=== PATIENT | female | born 1960 | race Caucasian/White ===

== ENCOUNTER → 2017-03-07 | Outpatient (REF) | payer MEDICARE, MEDICAID ==
[2017-03-07 17:52] LABS: ALBUMIN 4.3 GM/DL (3.2-5.2); ALBUMIN/GLOBULIN RATIO 1.23 (1.00-1.93); ALKALINE PHOSPHATASE 66 U/L (45-117); ALT/SGPT 44 U/L (12-78); ANION GAP 8 MEQ/L (8-16); AST/SGOT 27 U/L (15-37); BILIRUBIN,TOTAL 0.3 MG/DL (0.2-1.0); BLOOD UREA NITROGEN 16 MG/DL (7-18); CALCIUM LEVEL 9.5 MG/DL (8.5-10.1); CARBON DIOXIDE LEVEL 28 MEQ/L (21-32); CHLORIDE LEVEL 101 MEQ/L (98-107); CHOLESTEROL LEVEL 194 MG/DL (<200); CREATININE FOR GFR 0.69 MG/DL (0.55-1.02); GLOMERULAR FILTRATION RATE > 60.0 (>51); GLUCOSE, FASTING 101 MG/DL (70-105); POTASSIUM SERUM 4.4 MEQ/L (3.5-5.1); SODIUM LEVEL 137 MEQ/L (136-145); TOTAL PROTEIN 7.8 GM/DL (6.4-8.2); TRIGLYCERIDES LEVEL 329 MG/DL (<150)
[2017-03-12 00:07] LABS: %CD3+CD4+CD8+ 1.5 % (Not Estab.); %CD3+CD4-CD8+ 18.1 % (Not Estab.); %CD3+CD4-CD8- 0.8 % (Not Estab.); ABS CD3+CD4+CD8+ 44 /uL (Not Estab.); ABS CD3+CD4+CD8- 1914 /uL (Not Estab.); ABS CD3+CD4-CD8+ 525 /uL (Not Estab.); ABS CD3+CD4-CD8- 23 /uL (Not Estab.); CD4/CD8 NYSDOH RATIO 3.65 (Not Estab.); Eosinophils 1 % (.); HCT 43.3 % (34.0-46.6); Lyme Disease IgG/IgM Antibodie <0.91 ISR (0.00-0.90); Lyme Disease IgM Ab Quantitati <0.80 index (0.00-0.79); Monocytes 4 % (.); Neutrophils 42 % (.); WBC 5.6 x10E3/uL (3.4-10.8)
== END ==
LOC: M SFHCPLAZ 13:08
PROVIDERS: ATTEND Internal Medicine Infectious Disease
DX: B20 Human immunodeficiency virus [HIV] disease (principal); I10 Essential (primary) hypertension; M25.562 Pain in left knee; E78.2 Mixed hyperlipidemia
CPT/HCPCS: 36415; 80053; 80061; 81001; 84443; 85652; 86038; 86140; 86360; 86431; 86480; 86617; 86780; 87491; 87536; 87591; 90471; 90733; G0463

== ENCOUNTER → 2018-03-06 | Outpatient (REF) | payer MEDICARE, MEDICAID ==
[2018-03-06 15:59] LABS: ALBUMIN 4.1 GM/DL (3.2-5.2); ALBUMIN/GLOBULIN RATIO 1.08 (1.00-1.93); ALKALINE PHOSPHATASE 83 U/L (45-117); ALT/SGPT 43 U/L (12-78); ANION GAP 8 MEQ/L (8-16); AST/SGOT 33 U/L (7-37); BILIRUBIN,TOTAL 0.3 MG/DL (0.2-1.0); BLOOD UREA NITROGEN 14 MG/DL (7-18); CALCIUM LEVEL 9.1 MG/DL (8.5-10.1); CARBON DIOXIDE LEVEL 23 MEQ/L (21-32); CHLORIDE LEVEL 111 MEQ/L (98-107); CHOLESTEROL LEVEL 189 MG/DL (<200); CHOLESTEROL RISK RATIO 5.108 (<5); CREATININE FOR GFR 0.61 MG/DL (0.55-1.30); GLOMERULAR FILTRATION RATE > 60.0 (>51); GLUCOSE, FASTING 98 MG/DL (70-100); HDL CHOLESTEROL 37 MG/DL (>40); NON-HDL-C 152 MG/DL; POTASSIUM SERUM 4.5 MEQ/L (3.5-5.1); SODIUM LEVEL 142 MEQ/L (136-145); TOTAL PROTEIN 7.9 GM/DL (6.4-8.2); TRIGLYCERIDES LEVEL 275 MG/DL (<150)
[2018-03-06 16:00] LABS: ESTIMATED AVERAGE GLUCOSE 114 MG/DL (60-110); HEMOGLOBIN A1c 5.6 %
[2018-03-06 19:10] LABS: APPEARANCE, URINE CLEAR (CLEAR); BACTERIA, URINE AUTO 1+ (NEGATIVE); BILIRUBIN, URINE AUTO NEGATIVE (NEGATIVE); BLOOD, URINE BLOOD NEGATIVE (NEGATIVE); COLOR, URINE YELLOW (YELLOW); GLUCOSE, URINE (UA) AUTO NEGATIVE (NEGATIVE); KETONE, URINE AUTO NEGATIVE (NEGATIVE); LEUKOCYTE ESTERASE, URINE AUTO NEGATIVE (NEGATIVE); MUCUS, URINE SMALL (NEGATIVE); NITRITE, URINE AUTO NEGATIVE (NEGATIVE); PROTEIN, URINE AUTO NEGATIVE (NEGATIVE); RBC, URINE AUTO 0 /HPF (0-3); SPECIFIC GRAVITY URINE AUTO 1.016 (1.002-1.035); SQUAMOUS EPITHELIAL CELL UR AU 0 /HPF (0-6); UROBILINOGEN, URINE AUTO 0.2 mg/dL (0.0-2.0); WBC, URINE AUTO 1 /HPF (0-3)
[2018-03-08 15:11] LABS: % CD8 Pos Lymph 20.2 % (12.0-35.5); %CD4 Pos Lymphs 66.7 % (30.8-58.5); ABS Eosinophils 0.1 x10E3/uL (0.0-0.4); ABS Lymphs 3.3 x10E3/uL (0.7-3.1); ABS Monocytes 0.2 x10E3/uL (0.1-0.9); ABS Neutophils 2.2 x10E3/uL (1.4-7.0); Abs CD4 Helper 2201 /uL (359-1519); Abs CD8 Suppres 667 /uL (109-897); Eosinophils 2 % (Not Estab.); HCT 45.9 % (34.0-46.6); HGB 15.3 g/dL (11.1-15.9); Immature Grans 0 % (Not Estab.); Lymphocytes 56 % (Not Estab.); MCH 32.8 pg (26.6-33.0); MCHC 33.3 g/dL (31.5-35.7); MCV 99 fL (79-97); Monocytes 4 % (Not Estab.); Neutrophils 37 % (Not Estab.); Platelets 249 x10E3/uL (150-379); QUANTIFERON GOLD TB Negative (Negative); RBC 4.66 x10E6/uL (3.77-5.28); RDW 13.8 % (12.3-15.4); TB Test (QFT) Antigen 0.23 IU/mL (.); TB Test (QFT) Antigen Minus Ni 0.17 IU/mL (.); TB Test (QFT) Mitogen >10.00 IU/mL (.); TB Test (QFT) Nil 0.06 IU/mL (.)
[2018-03-11 14:13] LABS: HIV-1 RNA PCR QUANT 2 LC550285 <20 copies/mL (.)
== END ==
LOC: M SFHCPLAZ 12:19
DX: B20 Human immunodeficiency virus [HIV] disease (principal); E78.2 Mixed hyperlipidemia; Z79.899 Other long term (current) drug therapy
CPT/HCPCS: 80053

== ENCOUNTER → 2018-07-02 | Outpatient (REF) | payer MEDICARE, MEDICAID ==
[2018-07-04 14:49] LABS: HPV HYBRID CAPTURE II Negative (Negative)
== END ==
LOC: M SFHCWAGY 13:24
DX: Z12.4 Encounter for screening for malignant neoplasm of cervix (principal); Z85.41 Personal history of malignant neoplasm of cervix uteri
CPT/HCPCS: G0123

== ENCOUNTER → 2018-07-02 | Outpatient (CLI) | payer MEDICARE, MEDICAID | LOC: M WHC 13:29 | DX: Z12.31 Encounter for screening mammogram for malignant neoplasm of breast (principal); Z78.0 Asymptomatic menopausal state; Z12.4 Encounter for screening for malignant neoplasm of cervix; Z92.0 Personal history of contraception; Z92.29 Personal history of other drug therapy; Z85.41 Personal history of malignant neoplasm of cervix uteri | CPT/HCPCS: 77067; G0123 ==

== ENCOUNTER → 2018-10-13 | Outpatient (REF) | payer MEDICARE, MEDICAID ==
[2018-10-13 16:10] LABS: ALBUMIN 3.9 GM/DL (3.2-5.2); ALBUMIN/GLOBULIN RATIO 1.08 (1.00-1.93); ALKALINE PHOSPHATASE 76 U/L (45-117); ALT/SGPT 34 U/L (12-78); ANION GAP 8 MEQ/L (8-16); AST/SGOT 16 U/L (7-37); BILIRUBIN,TOTAL 0.3 MG/DL (0.2-1.0); BLOOD UREA NITROGEN 17 MG/DL (7-18); CALCIUM LEVEL 8.9 MG/DL (8.5-10.1); CARBON DIOXIDE LEVEL 26 MEQ/L (21-32); CHLORIDE LEVEL 105 MEQ/L (98-107); CHOLESTEROL LEVEL 200 MG/DL (<200); CHOLESTEROL RISK RATIO 5.555 (<5); CREATININE FOR GFR 0.64 MG/DL (0.55-1.30); GLOMERULAR FILTRATION RATE > 60.0 (>51); GLUCOSE, FASTING 121 MG/DL (70-100); HDL CHOLESTEROL 36 MG/DL (>40); LDL CHOLESTEROL 108 MG/DL (<100); NON-HDL-C 164 MG/DL; POTASSIUM SERUM 3.9 MEQ/L (3.5-5.1); SODIUM LEVEL 139 MEQ/L (136-145); TOTAL PROTEIN 7.5 GM/DL (6.4-8.2); TRIGLYCERIDES LEVEL 279 MG/DL (<150)
[2018-10-20 14:09] LABS: % CD8 Pos Lymph 19.5 % (12.0-35.5); %CD4 Pos Lymphs 66.9 % (30.8-58.5); ABS Eosinophils 0.1 x10E3/uL (0.0-0.4); ABS Lymphs 4.2 x10E3/uL (0.7-3.1); ABS Monocytes 0.2 x10E3/uL (0.1-0.9); ABS Neutophils 2.6 x10E3/uL (1.4-7.0); Abs CD4 Helper 2810 /uL (359-1519); Abs CD8 Suppres 819 /uL (109-897); CD4/CD8 Ratio 3.43 (0.92-3.72); Eosinophils 1 % (Not Estab.); HCT 43.7 % (34.0-46.6); HGB 14.7 g/dL (11.1-15.9); HIV-1 RNA PCR QUANT 2 LC550285 <20 copies/mL (.); Immature Grans 0 % (Not Estab.); Lymphocytes 60 % (Not Estab.); MCH 32.7 pg (26.6-33.0); MCHC 33.6 g/dL (31.5-35.7); MCV 97 fL (79-97); Monocytes 3 % (Not Estab.); Neutrophils 36 % (Not Estab.); Platelets 283 x10E3/uL (150-379); RBC 4.49 x10E6/uL (3.77-5.28); RDW 13.9 % (12.3-15.4); WBC 7.1 x10E3/uL (3.4-10.8)
== END ==
LOC: M SFHCPLAZ 13:33
DX: B20 Human immunodeficiency virus [HIV] disease (principal); E78.2 Mixed hyperlipidemia; Z23 Encounter for immunization
CPT/HCPCS: 80053

== ENCOUNTER → 2019-04-27 | Outpatient (REF) | payer MEDICARE, MEDICAID ==
[2019-04-27 13:55] LABS: ALBUMIN 4.3 GM/DL (3.2-5.2); ALT/SGPT 51 U/L (12-78); BILIRUBIN,TOTAL 0.5 MG/DL (0.2-1.0); BLOOD UREA NITROGEN 19 MG/DL (7-18); CALCIUM LEVEL 10.3 MG/DL (8.5-10.1); CARBON DIOXIDE LEVEL 30 MEQ/L (21-32); CHLORIDE LEVEL 101 MEQ/L (98-107); CHOLESTEROL LEVEL 179 MG/DL (<200); CHOLESTEROL RISK RATIO 4.589 (<5); CREATININE FOR GFR 0.73 MG/DL (0.55-1.30); GLOMERULAR FILTRATION RATE > 60.0 (>51); GLUCOSE, FASTING 100 MG/DL (70-100); HDL CHOLESTEROL 39 MG/DL (>40); LDL CHOLESTEROL 92 MG/DL (<100); NON-HDL-C 140 MG/DL; POTASSIUM SERUM 4.1 MEQ/L (3.5-5.1); SODIUM LEVEL 139 MEQ/L (136-145); TOTAL PROTEIN 7.7 GM/DL (6.4-8.2); TRIGLYCERIDES LEVEL 242 MG/DL (<150)
[2019-04-30 00:09] LABS: % CD8 Pos Lymph 18.8 % (12.0-35.5); %CD4 Pos Lymphs 69.1 % (30.8-58.5); ABS Eosinophils 0.1 x10E3/uL (0.0-0.4); ABS Lymphs 4.2 x10E3/uL (0.7-3.1); ABS Monocytes 0.4 x10E3/uL (0.1-0.9); ABS Neutophils 2.7 x10E3/uL (1.4-7.0); Abs CD4 Helper 2902 /uL (359-1519); Abs CD8 Suppres 790 /uL (109-897); CD4/CD8 Ratio 3.68 (0.92-3.72); Eosinophils 2 % (Not Estab.); HIV-1 RNA PCR QUANT 2 LC550285 <20 copies/mL (.); Immature Grans 0 % (Not Estab.); Lymphocytes 56 % (Not Estab.); MCH 33.2 pg (26.6-33.0); MCHC 34.1 g/dL (31.5-35.7); MCV 97 fL (79-97); Monocytes 6 % (Not Estab.); Neutrophils 36 % (Not Estab.); Platelets 281 x10E3/uL (150-450); RBC 4.52 x10E6/uL (3.77-5.28); RDW 14.3 % (12.3-15.4); WBC 7.5 x10E3/uL (3.4-10.8)
== END ==
LOC: M SFHCPLAZ 11:39
PROVIDERS: ATTEND Internal Medicine Infectious Disease
DX: B20 Human immunodeficiency virus [HIV] disease (principal); E78.2 Mixed hyperlipidemia
CPT/HCPCS: 36415; 80053; 80061; 86360; 87536; G0463

== ENCOUNTER → 2019-10-08 | Outpatient (REF) | payer MEDICARE, MEDICAID ==
[2019-10-08 18:09] LABS: ALT/SGPT 53 U/L (12-78); BILIRUBIN,TOTAL 0.4 MG/DL (0.2-1.0); BLOOD UREA NITROGEN 18 MG/DL (7-18); CALCIUM LEVEL 10.4 MG/DL (8.5-10.1); CARBON DIOXIDE LEVEL 29 MEQ/L (21-32); CHLORIDE LEVEL 100 MEQ/L (98-107); CHOLESTEROL LEVEL 205 MG/DL (<200); CHOLESTEROL RISK RATIO 6.029 (<5); CREATININE FOR GFR 0.72 MG/DL (0.55-1.30); GLOMERULAR FILTRATION RATE > 60.0 (>51); GLUCOSE, FASTING 118 MG/DL (70-100); HDL CHOLESTEROL 34 MG/DL (>40); NON-HDL-C 171 MG/DL; POTASSIUM SERUM 3.9 MEQ/L (3.5-5.1); SODIUM LEVEL 137 MEQ/L (136-145); TOTAL PROTEIN 7.6 GM/DL (6.4-8.2); TRIGLYCERIDES LEVEL 673 MG/DL (<150)
[2019-10-08 18:19] LABS: TOTAL 25(OH) VITAMIN D 24.9 NG/ML (30.0-100.0)
[2019-10-13 00:07] LABS: % CD8 Pos Lymph 21.2 % (12.0-35.5); %CD4 Pos Lymphs 65.2 % (30.8-58.5); ABS Eosinophils 0.1 x10E3/uL (0.0-0.4); ABS Lymphs 4.1 x10E3/uL (0.7-3.1); ABS Monocytes 0.3 x10E3/uL (0.1-0.9); ABS Neutophils 3.2 x10E3/uL (1.4-7.0); Abs CD4 Helper 2673 /uL (359-1519); Abs CD8 Suppres 869 /uL (109-897); CD4/CD8 Ratio 3.08 (0.92-3.72); Eosinophils 1 % (Not Estab.); HCT 45.2 % (34.0-46.6); HGB 15.5 g/dL (11.1-15.9); HIV-1 RNA PCR QUANT 2 LC550285 <20 copies/mL (.); Immature Grans 0 % (Not Estab.); Lymphocytes 52 % (Not Estab.); MCH 33.6 pg (26.6-33.0); MCHC 34.3 g/dL (31.5-35.7); MCV 98 fL (79-97); Monocytes 4 % (Not Estab.); Neutrophils 42 % (Not Estab.); Platelets 292 x10E3/uL (150-450); RBC 4.61 x10E6/uL (3.77-5.28); RDW 14.1 % (12.3-15.4); WBC 7.8 x10E3/uL (3.4-10.8)
== END ==
LOC: M SFHCPLAZ 12:56
PROVIDERS: ATTEND Internal Medicine Infectious Disease
DX: B20 Human immunodeficiency virus [HIV] disease (principal); E78.2 Mixed hyperlipidemia; Z23 Encounter for immunization
CPT/HCPCS: 36415; 80053; 80061; 82306; 86360; 87536; 90471; 90682; G0463

== ENCOUNTER → 2021-03-13 | Outpatient (REF) | payer MEDICARE, MEDICAID ==
[2021-03-13 17:57] LABS: ALBUMIN 4.2 GM/DL (3.2-5.2); ALT/SGPT 60 U/L (12-78); BILIRUBIN,TOTAL 0.3 MG/DL (0.2-1.0); BLOOD UREA NITROGEN 16 MG/DL (7-18); CARBON DIOXIDE LEVEL 28 MEQ/L (21-32); CHLORIDE LEVEL 102 MEQ/L (98-107); CHOLESTEROL LEVEL 161 MG/DL (<200); CHOLESTEROL RISK RATIO 4.878 (<5); CREATININE FOR GFR 0.72 MG/DL (0.55-1.30); GLOMERULAR FILTRATION RATE > 60.0 (>45); GLUCOSE, FASTING 104 MG/DL (70-100); HDL CHOLESTEROL 33 MG/DL (>40); LDL CHOLESTEROL 69 MG/DL (<100); NON-HDL-C 128 MG/DL; SODIUM LEVEL 137 MEQ/L (136-145); TOTAL 25(OH) VITAMIN D 34.3 NG/ML (30.0-100.0); TOTAL PROTEIN 7.8 GM/DL (6.4-8.2); TRIGLYCERIDES LEVEL 294 MG/DL (<150)
[2021-03-13 19:09] LABS: HEMOGLOBIN A1c 5.5 %
== END ==
LOC: M SFHCPLAZ 13:41
PROVIDERS: ATTEND Internal Medicine Infectious Disease
DX: B20 Human immunodeficiency virus [HIV] disease (principal); E78.2 Mixed hyperlipidemia; M85.88 Other specified disorders of bone density and structure, other site; R43.2 Parageusia; Z79.899 Other long term (current) drug therapy

== ENCOUNTER → 2021-09-11 | Outpatient (CLI) | payer MEDICARE, MEDICAID ==
[2021-09-11 18:40] LABS: ALBUMIN 4.3 GM/DL (3.2-5.2); ALT/SGPT 84 U/L (12-78); BILIRUBIN,TOTAL 0.3 MG/DL (0.2-1.0); BLOOD UREA NITROGEN 13 MG/DL (7-18); CALCIUM LEVEL 9.5 MG/DL (8.8-10.2); CARBON DIOXIDE LEVEL 31 MEQ/L (21-32); CHLORIDE LEVEL 103 MEQ/L (98-107); CHOLESTEROL LEVEL 244 MG/DL (<200); CHOLESTEROL RISK RATIO 6.777 (<5); CREATININE FOR GFR 0.72 MG/DL (0.55-1.30); GLOMERULAR FILTRATION RATE > 60.0 (>45); GLUCOSE, FASTING 85 MG/DL (70-100); HDL CHOLESTEROL 36 MG/DL (>40); NON-HDL-C 208 MG/DL; POTASSIUM SERUM 4.7 MEQ/L (3.5-5.1); SODIUM LEVEL 138 MEQ/L (136-145); TOTAL PROTEIN 8.1 GM/DL (6.4-8.2); TRIGLYCERIDES LEVEL 408 MG/DL (<150)
[2021-09-11 18:49] LABS: VITAMIN B12 LEVEL 811 PG/ML
[2021-09-11 18:50] LABS: FOLATE > 24.0 NG/ML
[2021-09-11 19:17] LABS: AMORPHOUS SEDIMENT SMALL (NEGATIVE); APPEARANCE, URINE CLOUDY (CLEAR); BACTERIA, URINE AUTO 1+ (NEGATIVE); BILIRUBIN, URINE AUTO NEGATIVE (NEGATIVE); BLOOD, URINE BLOOD NEGATIVE (NEGATIVE); COLOR, URINE YELLOW (YELLOW); GLUCOSE, URINE (UA) AUTO NEGATIVE (NEGATIVE); KETONE, URINE AUTO NEGATIVE (NEGATIVE); LEUKOCYTE ESTERASE, URINE AUTO NEGATIVE (NEGATIVE); NITRITE, URINE AUTO NEGATIVE (NEGATIVE); PROTEIN, URINE AUTO NEGATIVE (NEGATIVE); RBC, URINE AUTO 0 /HPF (0-3); SPECIFIC GRAVITY URINE AUTO 1.012 (1.002-1.035); SQUAMOUS EPITHELIAL CELL UR AU 2 /HPF (0-6); UROBILINOGEN, URINE AUTO 0.2 mg/dL (0.0-2.0); WBC, URINE AUTO 2 /HPF (0-3)
[2021-09-23 08:11] LABS: % CD8 Pos Lymph 20.4 % (12.0-35.5); %CD4 Pos Lymphs 66.1 % (30.8-58.5); ABS Basophils 0.1 x10E3/uL (0.0-0.2); ABS Lymphs 5.5 x10E3/uL (0.7-3.1); ABS Monocytes 0.2 x10E3/uL (0.1-0.9); ABS Neutophils 3.1 x10E3/uL (1.4-7.0); Abs CD4 Helper 3636 /uL (359-1519); Abs CD8 Suppres 1122 /uL (109-897); CD4/CD8 Ratio 3.24 (0.92-3.72); Eosinophils 0 % (Not Estab.); HCT 46.9 % (34.0-46.6); HGB 15.7 g/dL (11.1-15.9); HIV-1 RNA PCR QUANT 2 LC550285 <20 copies/mL (.); Lymphocytes 62 % (Not Estab.); MCH 33.2 pg (26.6-33.0); MCHC 33.5 g/dL (31.5-35.7); MCV 99 fL (79-97); Monocytes 2 % (Not Estab.); Neutrophils 35 % (Not Estab.); Platelets 337 x10E3/uL (150-450); RBC 4.73 x10E6/uL (3.77-5.28); RDW 12.1 % (11.7-15.4); VITAMIN B7 (BIOTIN) 0.37 ng/mL (0.05-0.83); WBC 8.9 x10E3/uL (3.4-10.8)
== END ==
LOC: M PLALAB 14:35
PROVIDERS: ATTEND Internal Medicine Infectious Disease
DX: B20 Human immunodeficiency virus [HIV] disease (principal); E78.2 Mixed hyperlipidemia; I10 Essential (primary) hypertension; Z23 Encounter for immunization
CPT/HCPCS: 36415; 80053; 80061; 81001; 82607; 82746; 84591; 86360; 87536; 90682; G0008; G0463

== ENCOUNTER → 2022-04-16 | Outpatient (CLI) | payer MEDICARE, MEDICAID ==
[2022-04-16 16:05] LABS: ALT/SGPT 58 U/L (12-78); BILIRUBIN,TOTAL 0.3 MG/DL (0.2-1.0); BLOOD UREA NITROGEN 14 MG/DL (7-18); CALCIUM LEVEL 9.3 MG/DL (8.8-10.2); CARBON DIOXIDE LEVEL 31 MEQ/L (21-32); CHLORIDE LEVEL 104 MEQ/L (98-107); CHOLESTEROL LEVEL 148 MG/DL (<200); CHOLESTEROL RISK RATIO 4.933 (<5); CREATININE FOR GFR 0.87 MG/DL (0.55-1.30); GLOMERULAR FILTRATION RATE > 60.0 (>45); GLUCOSE, FASTING 116 MG/DL (70-100); HDL CHOLESTEROL 30 MG/DL (>40); LDL CHOLESTEROL 50 MG/DL (<100); NON-HDL-C 118 MG/DL; POTASSIUM SERUM 4.2 MEQ/L (3.5-5.1); SODIUM LEVEL 140 MEQ/L (136-145); TOTAL PROTEIN 7.6 GM/DL (6.4-8.2); TRIGLYCERIDES LEVEL 338 MG/DL (<150)
[2022-04-20 07:08] LABS: % CD8 Pos Lymph 19.9 % (12.0-35.5); %CD4 Pos Lymphs 67.8 % (30.8-58.5); ABS Basophils 0.1 x10E3/uL (0.0-0.2); ABS Eosinophils 0.1 x10E3/uL (0.0-0.4); ABS Lymphs 4.9 x10E3/uL (0.7-3.1); ABS Monocytes 0.4 x10E3/uL (0.1-0.9); ABS Neutophils 3.4 x10E3/uL (1.4-7.0); Abs CD4 Helper 3322 /uL (359-1519); Abs CD8 Suppres 975 /uL (109-897); CD4/CD8 Ratio 3.41 (0.92-3.72); Eosinophils 1 % (Not Estab.); HCT 45.1 % (34.0-46.6); HGB 15.4 g/dL (11.1-15.9); HIV-1 RNA PCR QUANT 2 LC550285 <20 copies/mL (.); Immature Grans 0 % (Not Estab.); Lymphocytes 56 % (Not Estab.); MCHC 34.1 g/dL (31.5-35.7); MCV 97 fL (79-97); Monocytes 4 % (Not Estab.); Neutrophils 38 % (Not Estab.); Platelets 311 x10E3/uL (150-450); RBC 4.66 x10E6/uL (3.77-5.28); RDW 12.8 % (11.7-15.4); WBC 8.9 x10E3/uL (3.4-10.8)
== END ==
LOC: M PLALAB 14:07
PROVIDERS: ATTEND Internal Medicine Infectious Disease
DX: B20 Human immunodeficiency virus [HIV] disease (principal); E78.2 Mixed hyperlipidemia

== ENCOUNTER → 2022-10-29 | Outpatient (CLI) | payer MEDICARE, MEDICAID ==
[2022-10-29 17:01] LABS: ALBUMIN 4.2 G/DL (3.2-5.2); ALKALINE PHOSPHATASE 59 U/L (46-116); ALT/SGPT 39 U/L (7.0-40); AST/SGOT 29 U/L (<34); BILIRUBIN,TOTAL 0.4 MG/DL (0.3-1.2); BLOOD UREA NITROGEN 12 MG/DL (9-23); CALCIUM LEVEL 9.8 MG/DL (8.3-10.6); CARBON DIOXIDE LEVEL 28 MMOL/L (20-31); CHLORIDE LEVEL 101 MMOL/L (98-107); CHOLESTEROL LEVEL 136 MG/DL (<200); CREATININE FOR GFR 0.55 MG/DL (0.55-1.30); GLOMERULAR FILTRATION RATE > 60.0 (>45); GLUCOSE, FASTING 94 MG/DL (74-106); HDL CHOLESTEROL 36.7 MG/DL (>40); LDL CHOLESTEROL 36.9 MG/DL (<100); NON-HDL-C 99 MG/DL; POTASSIUM SERUM 4.5 MMOL/L (3.5-5.1); SODIUM LEVEL 140 MMOL/L (136-145); TOTAL PROTEIN 7.4 G/DL (5.7-8.2); TRIGLYCERIDES LEVEL 312 MG/DL (<150)
[2022-11-01 10:08] LABS: % CD8 Pos Lymph 20.9 % (12.0-35.5); %CD4 Pos Lymphs 66.1 % (30.8-58.5); ABS Basophils 0.1 x10E3/uL (0.0-0.2); ABS Eosinophils 0.1 x10E3/uL (0.0-0.4); ABS Lymphs 4.1 x10E3/uL (0.7-3.1); ABS Monocytes 0.4 x10E3/uL (0.1-0.9); ABS Neutophils 3.6 x10E3/uL (1.4-7.0); Abs CD4 Helper 2710 /uL (359-1519); Abs CD8 Suppres 857 /uL (109-897); CD4/CD8 Ratio 3.16 (0.92-3.72); Eosinophils 1 % (Not Estab.); HCT 45.4 % (34.0-46.6); HGB 15.4 g/dL (11.1-15.9); HIV-1 RNA PCR QUANT 2 LC550285 <20 copies/mL (.); Immature Grans 0 % (Not Estab.); Lymphocytes 49 % (Not Estab.); MCH 33.2 pg (26.6-33.0); MCHC 33.9 g/dL (31.5-35.7); MCV 98 fL (79-97); Monocytes 5 % (Not Estab.); Neutrophils 44 % (Not Estab.); Platelets 314 x10E3/uL (150-450); RBC 4.64 x10E6/uL (3.77-5.28); WBC 8.3 x10E3/uL (3.4-10.8)
== END ==
LOC: M PLALAB 12:19
PROVIDERS: ATTEND Internal Medicine Infectious Disease
DX: E78.2 Mixed hyperlipidemia (principal); B20 Human immunodeficiency virus [HIV] disease

== ENCOUNTER → 2023-05-21 | Outpatient (CLI) | payer OTHER ==
[2023-05-21 15:47] LABS: APPEARANCE, URINE HAZY (CLEAR); BACTERIA, URINE AUTO NEGATIVE (NEGATIVE); BILIRUBIN, URINE AUTO NEGATIVE (NEGATIVE); BLOOD, URINE BLOOD NEGATIVE (NEGATIVE); COLOR, URINE YELLOW (YELLOW); GLUCOSE, URINE (UA) AUTO NEGATIVE (NEGATIVE); KETONE, URINE AUTO NEGATIVE (NEGATIVE); LEUKOCYTE ESTERASE, URINE AUTO NEGATIVE (NEGATIVE); MUCUS, URINE SMALL (NEGATIVE); NITRITE, URINE AUTO NEGATIVE (NEGATIVE); PROTEIN, URINE AUTO NEGATIVE (NEGATIVE); RBC, URINE AUTO 0 /HPF (0-3); SQUAMOUS EPITHELIAL CELL UR AU 2 /HPF (0-6); UROBILINOGEN, URINE AUTO 0.2 mg/dL (0.0-2.0); WBC, URINE AUTO 0 /HPF (0-3)
[2023-05-21 16:06] LABS: ALBUMIN 4.3 G/DL (3.2-5.2); ALKALINE PHOSPHATASE 57 U/L (46-116); ALT/SGPT 36 U/L (7.0-40); AST/SGOT 16 U/L (<34); BILIRUBIN,TOTAL 0.5 MG/DL (0.3-1.2); BLOOD UREA NITROGEN 17 MG/DL (9-23); CALCIUM LEVEL 10.4 MG/DL (8.3-10.6); CARBON DIOXIDE LEVEL 28 MMOL/L (20-31); CHLORIDE LEVEL 104 MMOL/L (98-107); CHOLESTEROL LEVEL 125 MG/DL (<200); CHOLESTEROL RISK RATIO 3.84 (<5); CREATININE FOR GFR 0.52 MG/DL (0.55-1.30); GLOMERULAR FILTRATION RATE > 60.0 (>45); GLUCOSE, FASTING 117 MG/DL (74-106); HDL CHOLESTEROL 32.5 MG/DL (>40); LDL CHOLESTEROL 36.3 MG/DL (<100); NON-HDL-C 92.5 MG/DL; POTASSIUM SERUM 4.1 MMOL/L (3.5-5.1); SODIUM LEVEL 139 MMOL/L (136-145); TOTAL PROTEIN 7.5 G/DL (5.7-8.2); TRIGLYCERIDES LEVEL 281 MG/DL (<150)
[2023-05-24 10:08] LABS: % CD8 Pos Lymph 20.4 % (12.0-35.5); %CD4 Pos Lymphs 64.7 % (30.8-58.5); ABS Basophils 0.1 x10E3/uL (0.0-0.2); ABS Eosinophils 0.1 x10E3/uL (0.0-0.4); ABS Lymphs 3.5 x10E3/uL (0.7-3.1); ABS Monocytes 0.3 x10E3/uL (0.1-0.9); ABS Neutophils 2.8 x10E3/uL (1.4-7.0); Abs CD4 Helper 2265 /uL (359-1519); Abs CD8 Suppres 714 /uL (109-897); CD4/CD8 Ratio 3.17 (0.92-3.72); Eosinophils 1 % (Not Estab.); HCT 48.3 % (34.0-46.6); HGB 16.2 g/dL (11.1-15.9); HIV-1 RNA PCR QUANT 2 LC550285 <20 copies/mL (.); Immature Grans 0 % (Not Estab.); Lymphocytes 51 % (Not Estab.); MCH 32.9 pg (26.6-33.0); MCHC 33.5 g/dL (31.5-35.7); MCV 98 fL (79-97); Monocytes 5 % (Not Estab.); Neutrophils 42 % (Not Estab.); Platelets 269 x10E3/uL (150-450); RBC 4.93 x10E6/uL (3.77-5.28); WBC 6.7 x10E3/uL (3.4-10.8)
== END ==
LOC: M PLALAB 13:14
PROVIDERS: ATTEND Internal Medicine Infectious Disease
DX: B20 Human immunodeficiency virus [HIV] disease (principal); E78.2 Mixed hyperlipidemia; I10 Essential (primary) hypertension

== ENCOUNTER → 2023-11-27 | Outpatient (CLI) | payer OTHER, MEDICAID ==
[2023-11-27 16:31] LABS: ALBUMIN 4.1 G/DL (3.2-5.2); ALKALINE PHOSPHATASE 61 U/L (46-116); ALT/SGPT 40 U/L (7.0-40); AST/SGOT 21 U/L (<34); BILIRUBIN,TOTAL 0.4 MG/DL (0.3-1.2); BLOOD UREA NITROGEN 14 MG/DL (9-23); CALCIUM LEVEL 9.6 MG/DL (8.3-10.6); CARBON DIOXIDE LEVEL 32 MMOL/L (20-31); CHLORIDE LEVEL 103 MMOL/L (98-107); CREATININE FOR GFR 0.57 MG/DL (0.55-1.30); GLOMERULAR FILTRATION RATE > 60.0 (>45); GLUCOSE, FASTING 136 MG/DL (74-106); POTASSIUM SERUM 4.2 MMOL/L (3.5-5.1); SODIUM LEVEL 137 MMOL/L (136-145); TOTAL PROTEIN 7.3 G/DL (5.7-8.2)
[2023-11-27 16:35] LABS: HEMOGLOBIN A1c 5.6 % (4.0-6.0)
[2023-11-30 04:19] LABS: % CD8 Pos Lymph 21.6 % (12.0-35.5); %CD4 Pos Lymphs 66.3 % (30.8-58.5); ABS Basophils 0.1 x10E3/uL (0.0-0.2); ABS Eosinophils 0.1 x10E3/uL (0.0-0.4); ABS Monocytes 0.4 x10E3/uL (0.1-0.9); ABS Neutophils 3.5 x10E3/uL (1.4-7.0); Abs CD4 Helper 2652 /uL (359-1519); Abs CD8 Suppres 864 /uL (109-897); CD4/CD8 Ratio 3.07 (0.92-3.72); Eosinophils 2 % (Not Estab.); HCT 45.6 % (34.0-46.6); HIV-1 RNA PCR QUANT 2 LC550285 <20 copies/mL (.); Immature Grans 0 % (Not Estab.); Lymphocytes 49 % (Not Estab.); MCH 33.8 pg (26.6-33.0); MCHC 35.1 g/dL (31.5-35.7); MCV 96 fL (79-97); Monocytes 5 % (Not Estab.); Neutrophils 43 % (Not Estab.); Platelets 251 x10E3/uL (150-450); RBC 4.73 x10E6/uL (3.77-5.28); RDW 13.2 % (11.7-15.4); WBC 8.1 x10E3/uL (3.4-10.8)
== END ==
LOC: M PLALAB 14:20
PROVIDERS: ATTEND Internal Medicine Infectious Disease
DX: B20 Human immunodeficiency virus [HIV] disease (principal); E78.2 Mixed hyperlipidemia; Z79.899 Other long term (current) drug therapy

== ENCOUNTER → 2024-05-19 | Outpatient (REF) | payer OTHER, MEDICAID ==
[2024-05-19 19:13] LABS: APPEARANCE, URINE CLEAR (CLEAR); BACTERIA, URINE AUTO NEGATIVE (NEGATIVE); BILIRUBIN, URINE AUTO NEGATIVE (NEGATIVE); BLOOD, URINE BLOOD NEGATIVE (NEGATIVE); COLOR, URINE YELLOW (YELLOW); GLUCOSE, URINE (UA) AUTO NEGATIVE (NEGATIVE); KETONE, URINE AUTO NEGATIVE (NEGATIVE); LEUKOCYTE ESTERASE, URINE AUTO NEGATIVE (NEGATIVE); NITRITE, URINE AUTO NEGATIVE (NEGATIVE); PROTEIN, URINE AUTO NEGATIVE (NEGATIVE); RBC, URINE AUTO 0 /HPF (0-3); SPECIFIC GRAVITY URINE AUTO 1.013 (1.002-1.035); SQUAMOUS EPITHELIAL CELL UR AU 1 /HPF (0-6); UROBILINOGEN, URINE AUTO 0.2 mg/dL (0.0-2.0); WBC, URINE AUTO 0 /HPF (0-3)
[2024-05-19 19:47] LABS: ALBUMIN 4.1 G/DL (3.2-5.2); ALKALINE PHOSPHATASE 55 U/L (46-116); ALT/SGPT 43 U/L (7.0-40); AST/SGOT 20 U/L (<34); BILIRUBIN,TOTAL 0.5 MG/DL (0.3-1.2); BLOOD UREA NITROGEN 16 MG/DL (9-23); CALCIUM LEVEL 9.8 MG/DL (8.3-10.6); CARBON DIOXIDE LEVEL 29 MMOL/L (20-31); CHLORIDE LEVEL 105 MMOL/L (98-107); CHOLESTEROL LEVEL 153 MG/DL (<200); CHOLESTEROL RISK RATIO 4.11 (<5); CREATININE FOR GFR 0.61 MG/DL (0.55-1.30); GLOMERULAR FILTRATION RATE > 60.0 (>45); GLUCOSE, FASTING 101 MG/DL (74-106); HDL CHOLESTEROL 37.2 MG/DL (>40); NON-HDL-C 115.8 MG/DL; POTASSIUM SERUM 4.4 MMOL/L (3.5-5.1); SODIUM LEVEL 140 MMOL/L (136-145); TOTAL PROTEIN 7.4 G/DL (5.7-8.2); TRIGLYCERIDES LEVEL 349 MG/DL (<150)
== END ==
LOC: M PLALAB 16:54
PROVIDERS: ATTEND Internal Medicine Infectious Disease
DX: B20 Human immunodeficiency virus [HIV] disease (principal); I10 Essential (primary) hypertension; E78.2 Mixed hyperlipidemia

== ENCOUNTER → 2025-04-15 | Outpatient (CLI) | payer OTHER, MEDICAID ==
[2025-04-15 19:08] LABS: HEMOGLOBIN A1c 5.7 % (4.0-6.0)
[2025-04-15 19:13] LABS: ALBUMIN 4.1 G/DL (3.2-5.2); ALKALINE PHOSPHATASE 54 U/L (35-104); ALT/SGPT 96 U/L (7.0-40); AST/SGOT 69 U/L (<34); BILIRUBIN,TOTAL 0.5 MG/DL (0.3-1.2); BLOOD UREA NITROGEN 12 MG/DL (9-23); CALCIUM LEVEL 9.8 MG/DL (8.3-10.6); CARBON DIOXIDE LEVEL 30 MMOL/L (20-31); CHLORIDE LEVEL 99 MMOL/L (98-107); CHOLESTEROL LEVEL 291 MG/DL (<200); CREATININE FOR GFR 0.53 MG/DL (0.55-1.30); GLOMERULAR FILTRATION RATE > 90.0 (>45); GLUCOSE, FASTING 99 MG/DL (74-106); HDL CHOLESTEROL 40.4 MG/DL (>40); NON-HDL-C 250.6 MG/DL; POTASSIUM SERUM 4.3 MMOL/L (3.5-5.1); SODIUM LEVEL 138 MMOL/L (136-145); TOTAL PROTEIN 7.8 G/DL (5.7-8.2); TRIGLYCERIDES LEVEL 582 MG/DL (<150)
[2025-04-15 19:15] LABS: THYROID STIMULATING HORMONE 2.057 uIU/ML (0.55-4.78)
[2025-04-18 17:37] LABS: % CD4 68 % (30-61); %CD8 20 % (12-42); ABSOLUTE CD4 CELLS 2695 cells/uL (490-1740); ABSOLUTE CD8 CELLS 813 cells/uL (180-1170); ABSOLUTE LYMPHOCYTES 3968 cells/uL (850-3900); CD4 CD8 RATIO 3.31 (0.86-5.00)
== END ==
LOC: M PLALAB 13:54
PROVIDERS: ATTEND Internal Medicine Infectious Disease
DX: B20 Human immunodeficiency virus [HIV] disease (principal); E78.2 Mixed hyperlipidemia; Z13.1 Encounter for screening for diabetes mellitus

== ENCOUNTER → 2025-10-04 | Outpatient (CLI) | payer OTHER, MEDICAID ==
[2025-10-04 15:42] LABS: ALT/SGPT 75 U/L (7.0-40); AST/SGOT 52 U/L (<34); CALCIUM LEVEL 9.6 MG/DL (8.3-10.6); CARBON DIOXIDE LEVEL 28 MMOL/L (20-31); CHLORIDE LEVEL 100 MMOL/L (98-107); CHOLESTEROL LEVEL 281 MG/DL (<200); CHOLESTEROL RISK RATIO 7.31 (<5); CREATININE FOR GFR 0.61 MG/DL (0.55-1.30); GLOMERULAR FILTRATION RATE > 90.0 (>45); NON-HDL-C 242.6 MG/DL; POTASSIUM SERUM 4.5 MMOL/L (3.5-5.1); SODIUM LEVEL 140 MMOL/L (136-145); TRIGLYCERIDES LEVEL 480 MG/DL (<150)
[2025-10-06 17:56] LABS: % CD4 63 % (30-61); %CD8 20 % (12-42); ABSOLUTE CD4 CELLS 2205 cells/uL (490-1740); ABSOLUTE CD8 CELLS 707 cells/uL (180-1170); ABSOLUTE LYMPHOCYTES 3497 cells/uL (850-3900); CD4 CD8 RATIO 3.12 (0.86-5.00)
[2025-10-08 23:37] LABS: HIV-1 RNA PCR QUANT 2 NOT DETECTED copies/mL (NOT DETECTED); HIV-1 RNA PCR QUANT 3 NOT DETECTED (NOT DETECTED)
== END ==
LOC: M PLALAB 13:25
PROVIDERS: ATTEND Internal Medicine Infectious Disease
DX: B20 Human immunodeficiency virus [HIV] disease (principal); E78.2 Mixed hyperlipidemia